=== PATIENT | male | born 1985 | race Caucasian/White ===

== ENCOUNTER → 2018-12-30 | Outpatient (CLI) | payer OTHER | LOC: MHCPAIN 08:28 | DX: G89.29 Other chronic pain (principal); M79.2 Neuralgia and neuritis, unspecified | CPT/HCPCS: G0463 ==

== ENCOUNTER 2019-02-03 20:26 | Emergency (ER) | payer OTHER ==
[~2019-02-03] VITALS: Ht 182.9 cm; Wt 109.1 kg
[2019-02-03 20:30] VITALS: BP 125/80; TEMP 98.3
[2019-02-03] MEDS ORDERED: FLEXERIL 1010 MG/TAB PO (22:58)
[2019-02-03] MEDS ORDERED: NORCO 325 MG-51 TAB PO (22:58)
[2019-02-03] MEDS ORDERED: ZOFRAN ODT4 MG PO (23:06)
[2019-02-03 23:09] VITALS: PULSE 70
== END 2019-02-03 23:09 | disposition home or self-care (01) ==
LOC: COL.ER 20:26
DX: M54.6 Pain in thoracic spine (principal)
CPT/HCPCS: J1885

== ENCOUNTER 2019-07-30 18:59 | Emergency (ER) | payer OTHER ==
[~2019-07-30] VITALS: Ht 182.9 cm; Wt 104.5 kg
[~2019-07-30 18:59] MED LIST: FLEXERIL 1010 MG/TAB PO; NORCO 325 MG-51 TAB PO; ZOFRAN ODT4 MG PO
[2019-07-30 19:03] VITALS: TEMP 99.1
[2019-07-30 19:42] LABS: BASO % 0.2 % (0.0-2.0); EOS % 0.6 % (0-4.0); GRAN # 3.3 (1.4-6.5); GRAN % 68.5 % (42.2-75.2); HEMATOCRIT 43.5 % (42.0-52.0); LYMPH # 0.8 (1.2-3.4); MEAN CELL VOLUME 83 fl (80.0-100.0); MEAN CORPUSCULAR HEMOGLOBIN 29 pg (27.0-31.0); MEAN CORPUSCULAR HGB CONC 35 g/dl (33.0-37.0); MEAN PLATELET VOLUME 9.6 fl (7.4-10.4); MONO # 0.7 (0.1-0.6); MONO % 13.5 % (1.7-9.3); PLATELET COUNT 192 K/mm3 (130-400); RED BLOOD COUNT 5.24 M/mm3 (4.20-5.60); REDCELL DISTRIBUTION WIDTH-CV 12.3 % (11.5-14.5)
[2019-07-30 20:00] LABS: BILIRUBIN,TOTAL 0.5 mg/dL (0.0-1.0); CALCIUM 8.7 mg/dL (8.4-10.2); CREATININE, serum 0.84 (0.66-1.25); POTASSIUM 3.8 mmol/L (3.4-5.0); TOTAL PROTEIN 7.6 gm/dL (6.4-8.2)
[2019-07-30] MEDS ORDERED: AMOXICILLIN/CLA1 TA1 PO (21:07)
[2019-07-30] MEDS ORDERED: TESSALON PERLE200 MG PO (21:07)
[2019-07-30 22:12] VITALS: BP 125/82; PULSE 87
== END 2019-07-30 22:14 | disposition home or self-care (01) ==
LOC: COL.ER 18:59
PROVIDERS: Emergency Medicine
DX: J18.1 Lobar pneumonia, unspecified organism (principal)
CPT/HCPCS: J0696; J7030

== ENCOUNTER 2019-08-02 00:50 | Inpatient (IN) | payer OTHER ==
[~2019-08-02] VITALS: Ht 182.9 cm; Wt 114.8 kg
[~2019-08-02 00:50] MED LIST changes: +AMOXICILLIN/CLA1 TA1 PO; +TESSALON PERLE200 MG PO
[2019-08-02 01:28] LABS: HEMATOCRIT 43.8 % (42.0-52.0); HEMOGLOBIN 14.7 g/dl (13.5-18.0); MEAN CELL VOLUME 84 fl (80.0-100.0); MEAN CORPUSCULAR HEMOGLOBIN 28 pg (27.0-31.0); MEAN CORPUSCULAR HGB CONC 34 g/dl (33.0-37.0); MEAN PLATELET VOLUME 8.7 fl (7.4-10.4); PLATELET COUNT 210 K/mm3 (130-400); RED BLOOD COUNT 5.22 M/mm3 (4.20-5.60); REDCELL DISTRIBUTION WIDTH-CV 12.3 % (11.5-14.5)
[2019-08-02 01:47] LABS: BASOPHIL 1 % (0-2); LYMPHOCYTE 22 % (20.0-51.0); NEUTROPHILS 67 % (42.0-75.2)
[2019-08-02 01:48] LABS: PLATELET ESTIMATE NORMAL (NORMAL)
[2019-08-02 01:53] LABS: ALANINE AMINOTRANSFERASE 57 U/L (21-72); ALBUMIN 4.1 gm/dL (3.5-5.0); ALKALINE PHOSPHATASE 65 U/L (50-136); ANION GAP 11 mmol/L (7-16); AST,SGOT 64 U/L (15-37); BILIRUBIN,TOTAL 0.6 mg/dL (0.0-1.0); BLOOD UREA NITROGEN 10 mg/dL (9-20); CARBON DIOXIDE 31 mmol/L (22-30); CHLORIDE 99 mmol/L (98-107); CREATININE, serum 0.95 (0.66-1.25); GLUCOSE 116 mg/dL (74-106); POTASSIUM 4.4 mmol/L (3.4-5.0); SODIUM 141 mmol/L (137-145); TOTAL PROTEIN 7.9 gm/dL (6.4-8.2)
[2019-08-02 03:04] LABS: TROPONIN-I < 0.012 ng/mL (0.000-0.035)
[2019-08-02 03:14] LABS: C-REACTIVE PROTEIN 8.2 mg/dL (0.0-0.9)
[2019-08-02 06:22] VITALS: BP 123/71; PULSE 96; TEMP 99.3
[2019-08-02 07:32] VITALS: BP 126/70; PULSE 94; TEMP 98.9
--- NOTE | 2019-08-02 07:34 | NUR ---
PATIENT ADMITTED TO ROOM 351 FROM INPATIENT FOR PNEUMONIA. ARRIVED VIA @ 0503. A/O X 4. AMBULATED TO BED WITHOUT ASSISTANCE. GAIT STEADY. DENIES C/O PAIN OR DISCOMFORT. SEE FLOW SHEET FOR FVS OBTAINED. OXGEN 2L/NC IN PLACE FOR COMFORT. DENIES C/O SOA OR CHEST PAIN. PRODUCTIVE COUGH. REPORTS BLOOD TINGED SPUTUM. URINE SPECIMEN COLLECTED. URINE BEAU IN COLOR. CALL TO PROVIDER. ORDER RECEIVED FOR NS @ 125ML/HR CONTINUOUS. IN ROOM WITH PATIENT. ALL QUESTIONS AND CONCERNS ANSWERED BEFORE END OF VISIT. BED IN LOW POSITION AND CALL LIGHT IN PLACE.
--- NOTE | 2019-08-02 07:36 | NUR ---
Vancomycin Initial Dosing Pharmacy Note Ordering provider: Holger Burrell B.MD Indication/duration: pneumonia Relevant comorbidities: LABS: Creatinine = 0.95, est CrCl >90 Recommendation: 1.75 g IV q8h, follow daily labs, trough on 08/04 @ 0830 Loading dose: 1.75 grams Maintenance dose: 1.75 grams every 8 hours Trough goal: 15-20 ug/mL
[2019-08-02 08:05] LABS: COLLECTION METHOD CLEAN CATCH
[2019-08-02 08:11] LABS: PH 5 (5-8); SQUAMOUS EPITHELIAL None Seen /hpf; URINE APPEARANCE Clear; URINE BACTERIA None Seen /hpf; URINE BILIRUBIN Negative (NEGATIVE); URINE BLOOD Negative (NEGATIVE); URINE COLOR Yellow; URINE GLUCOSE Negative (NEGATIVE); URINE KETONE Negative (NEGATIVE); URINE LEUKOCYTE ESTERASE Negative (NEGATIVE); URINE NITRATE Negative (NEGATIVE); URINE PROTEIN(semi-quant) Negative (NEGATIVE); URINE RBC 0-2 /hpf; URINE UROBILINOGEN Negative (NEGATIVE)
[2019-08-02 08:21] LABS: TRICYCLIC ANTIDEPRESS URINE NEGATIVE
--- NOTE | 2019-08-02 09:04 | NUR ---
Pt is drowsy in bed, but arousable to name. When awake he is A/Ox4, sitting up in bed. He remains on 2L O2 per NC for comfort, resp are even and unlabored at rest. IVF are infusing into left AC without complications. Pt states he is starting to have a productive cough, thin and yellow per pts report. is at bedside, updated on plan of care. Denies any other needs.
--- NOTE | 2019-08-02 11:06 | NUR ---
Initial visit; Patient thanked Sales Property Manager for looking in on her and offering God's blessings.
[2019-08-02 11:59] VITALS: BP 120/71; PULSE 99; TEMP 98.4
--- NOTE | 2019-08-02 13:56 | NUR ---
KENYATTA met with the patient to discuss discharge plan. The patient lives in [place] with his (Rhea #[phone]) and their two children. He reports independence with ADLs and has a cane. The patient's PCP is Dr. Aaron Lawson and he receives his medications at [facility]. He reports no difficulties obtaining his meds. The patient does not have advanced directives completed, but he was interested in obtaining a form for DPOA-HC. KENYATTA provided. The patient plans to return back home with his family upon discharge. No additional needs at this time.
[2019-08-02 15:20] VITALS: TEMP 100.5
--- NOTE | 2019-08-02 16:03 | NUR ---
Pt with a temp of 100.5, axillary. Pt states he feels warm. Given PRN tylenol. Denies any other needs.
[2019-08-02 16:32] VITALS: BP 119/69; PULSE 86; TEMP 99.3
--- NOTE | 2019-08-02 17:55 | NUR ---
Temp down to 99.3 post tylenol. States he is feeling "a little better." Denies any other needs.
[2019-08-02 19:57] VITALS: BP 119/69; PULSE 97; TEMP 98.1
[2019-08-03] VITALS (7 sets, daily range): BP systolic 114–132; BP diastolic 65–81; PULSE 75–91; TEMP 98–98.9
[2019-08-03 07:05] LABS: HEMATOCRIT 37.8 % (42.0-52.0); MEAN CELL VOLUME 84 fl (80.0-100.0); MEAN CORPUSCULAR HEMOGLOBIN 28 pg (27.0-31.0); MEAN CORPUSCULAR HGB CONC 33 g/dl (33.0-37.0); PLATELET COUNT 232 K/mm3 (130-400); RED BLOOD COUNT 4.48 M/mm3 (4.20-5.60); REDCELL DISTRIBUTION WIDTH-CV 12.3 % (11.5-14.5)
[2019-08-03 07:15] LABS: HEMOGLOBIN 12.6 g/dl (13.5-18.0)
--- NOTE | 2019-08-03 07:15 | NUR ---
Received report, patient is resting in bed with eyes closed.
[2019-08-03 07:20] LABS: CALCIUM 8.4 mg/dL (8.4-10.2); CREATININE, serum 0.74 (0.66-1.25); POTASSIUM 3.8 mmol/L (3.4-5.0)
[2019-08-03 07:42] LABS: BAND 10 % (0-10); EOSINOPHIL 4 % (0-4); MYELOCYTE 2 % (0-0); NEUTROPHILS 38 % (42.0-75.2); PLATELET ESTIMATE NORMAL (NORMAL)
[2019-08-03 07:44] LABS: LYMPHOCYTE 37 % (20.0-51.0)
--- NOTE | 2019-08-03 19:12 | NUR ---
Report given to oncoming shift, no needs identified.
[2019-08-04 04:45] VITALS: BP 134/76; PULSE 81; TEMP 98.8
[2019-08-04 07:42] VITALS: BP 134/85; PULSE 89; TEMP 99.1
--- NOTE | 2019-08-04 09:55 | NUR ---
Pt is awake and A/Ox4, sitting up in bed. He denies pain or discomfort. IVF are infusing into left AC without difficulty. Pt remains on room air, resp. are even and unlabored. Per pt's report pt is "feeling pretty good." He states this is "my best day here." Pt is up in room as tolerated. Denies any other needs. at bedside.
[2019-08-04 11:22] VITALS: BP 132/73; PULSE 94; TEMP 99.3
[2019-08-04] MEDS ORDERED: MUCUS RELIEF200 MG PO (16:21)
[2019-08-04] MEDS ORDERED: PROAIR HFA0.09 MG/AC IH (16:23)
[2019-08-04] MEDS ORDERED: TESSALON PERLE200 MG PO (16:45)
--- NOTE | 2019-08-04 16:59 | NUR ---
Pt was discharged home from hospital. All discharge intructions and paperwork was reviewed with pt who expressed understanding and had no questions. Saline lock removed, catheter tip intact. New prescriptions sent to pharm. Pt awaiting for ride.
--- NOTE | 2019-08-04 18:25 | NUR ---
Pt is still awaiting to come and take pt home.
--- NOTE | 2019-08-04 19:15 | NUR ---
Pt escorted out of facility by staff.
== END 2019-08-04 19:15 | disposition home or self-care (01) | DRG 194 ==
LOC: COL.ER 00:50 → MEDICAL 02:07 → COL.ER 02:07 → MEDICAL 02:07
PROVIDERS: Emergency Medicine; Physician Assistant; ADMIT Student in an Organized Health Care Education/Training Program
DX: J18.1 Lobar pneumonia, unspecified organism (principal); K51.90 Ulcerative colitis, unspecified, without complications; J91.8 Pleural effusion in other conditions classified elsewhere; E66.9 Obesity, unspecified; R00.0 Tachycardia, unspecified; B34.0 Adenovirus infection, unspecified
CPT/HCPCS: 99231-AI; 99239; A4216; J0456; J0696; J1650; J2543; J3370; J7030; J7040; J7050; Q9967